=== PATIENT | female | born 1965 | race African-American/Black ===

== ENCOUNTER 2023-04-15 09:26 | Outpatient (CLI) | payer BC, OTHER | END 2023-04-15 09:27 | disposition home or self-care (01) | LOC: CSHULT 09:26 | PROVIDERS: ATTEND Nurse Practitioner Family | DX: N02.9 Recurrent and persistent hematuria with unspecified morphologic changes (principal); D25.9 Leiomyoma of uterus, unspecified | CPT/HCPCS: 76700; 76856 ==

== ENCOUNTER 2024-03-18 20:31 | Emergency (ER) | payer BC ==
[2024-03-18] MEDS ORDERED: Labetalol HCl 100 MG/20 ML VIAL ONE (20:50)
[2024-03-18 20:56] LABS: #Basophils 0.06 10x3/uL (0.0-0.2); #Eosinophils 0.23 10x3/uL (0.0-0.5); #Neutrophils 7.37 10x3/uL (1.5-8.4); %Basophils 0.5 % (0.0-2.0); %Eosinophils 1.9 % (0.0-6.0); %Lymphocytes 28.6 % (18.0-47.0); %Monocytes 6.7 % (0.0-10.0); Hemoglobin 12.3 g/dL (12.0-15.5); Mean Corpuscular HGB CONC 35.1 g/dL (32.0-36.0); Mean Corpuscular Hemoglobin 25.7 pg (27.0-33.0); Mean Corpuscular Volume 73.2 fL (81.6-98.3); Mean Platelet Volume 9.6 fL (7.4-10.4); Platelet Count 356 10x3/uL (150-450); RBC Distribution Width 13.7 % (11.5-14.5); Red Blood Cell (RBC) Count 4.78 10x6/uL (3.90-5.03); White Blood Cell (WBC) Count 11.9 10x3/uL (3.5-10.5)
[2024-03-18] MEDS ORDERED: hydrALAZINE 20 MG/ML VIAL ONE (21:35)
[2024-03-18 21:37] LABS: Troponin I Less than 0.010 ng/mL (< 0.028)
[2024-03-18 21:45] LABS: ALT (SGPT) 15 U/L (8-55); AST (SGOT) 17 U/L (5-34); Albumin 3.4 g/dL (3.5-5.0); Alkaline Phosphatase 93 U/L (40-110); Anion Gap 13 mmol/L (10-20); BUN (Urea Nitrogen) 16 mg/dL (9.8-20.1); Bilirubin, Total 0.7 mg/dL (0.2-1.2); Calc. Creatinine Clearance 0 mL/min (70-130); Calcium 9.4 mg/dL (7.8-10.44); Carbon Dioxide 25 mmol/L (22-29); Chloride 108 mmol/L (98-107); Estimated GFR 35; Globulin 4.3 g/dL (2.4-3.5); Glucose 90 mg/dL (70-105); Potassium 3.4 mmol/L (3.5-5.1); Protein, Total 7.7 g/dL (6.0-8.3); Sodium 143 mmol/L (136-145)
== END 2024-03-18 22:22 | disposition home or self-care (01) ==
LOC: CSHERS 20:31
DX: I10 Essential (primary) hypertension (principal); Z79.899 Other long term (current) drug therapy
CPT/HCPCS: 71045; 80053; 84484; 85025; 93005; 96374; 96375; J0360

== ENCOUNTER 2024-07-10 18:34 | Emergency (ER) | payer BC | END 2024-07-10 20:43 | disposition home or self-care (01) | LOC: CSHERS 18:34 | DX: J06.9 Acute upper respiratory infection, unspecified (principal); B97.89 Other viral agents as the cause of diseases classified elsewhere; I10 Essential (primary) hypertension | CPT/HCPCS: 71045; 87428 ==